=== PATIENT | male | born 1965 | race African-American/Black ===

== ENCOUNTER 2018-03-02 01:15 | Observation (INO) | payer OTHER, MEDICARE, MEDICAID ==
[2018-03-02] VITALS (10 sets, daily range): BP systolic 124–154; BP diastolic 59–83; PULSE 82–108; RESP 18–22; TEMP 98–99.6; O2SAT 93–97
[~2018-03-02] VITALS: Ht 170.2 cm; Wt 153.3 kg
[~2018-03-02 01:15] MED LIST: ACETAMINOPHEN 325 MG TAB PO PRN; ASPI-516 CHEW; ATOR80TA45 PO; BACL10TA PO; COPA20KI SQ; DOCU100C15 PO; GABA100C4 PO; IBUP1TAB7 PO; LEVO100T5 PO; TOPI1CAP16 PO
[2018-03-02] MEDS ORDERED: IOHEXOL 350 MG/ML 50 ML BTL (for Cath Lab) OTHER ONE (01:26)
[2018-03-02] MEDS ORDERED: BACLOFEN 10 MG TAB PO PRN (04:45)
[2018-03-02] MEDS: LEVOTHYROXINE SODIUM 100 MCG TAB PO SCH (05:24)
[2018-03-02] MEDS: SODIUM CHLOR 0.9% 1000 ML INJ 1,000 ML IV SCH ×3 (05:42→20:45)
--- NOTE | 2018-03-02 08:49 | HHI.HP ---
[facility] Service [place] [facility] Primary Care Physician [facility] Admission Diagnosis Chest pain Congestion Diagnoses: (1) Chest congestion (2) Chest pain Chief Complaint: Chest pain Cough Shortness of breath Travel History International Travel<30 Days: No Contact w/Intl Traveler <30 Da: No Traveled to Known Affected Are: No History of Present Illness This is a pleasant 52-year-old male patient with a known medical history of diabetes, hyperlipidemia, hypertension and hypothyroidism who presented to the ED with complaints of nonproductive cough, chest pain, shortness of breath and chills 1 day. Patient states that he does have a history of pneumonia and the symptoms feel the same as when he was diagnosed with this years back. Patient does admit to subjective fevers although he has not checked his temperature at home. Does admit to chills. Patient does admit to coughing which is associated with upper chest pain that radiates up his neck and is worse with coughing. Patient does admit to shortness of breath and need for use of increasing pillows at night. Denies any sore throat, earache, abdominal pain, nausea, vomiting, diarrhea dysuria. Patient does state he takes care of his 5 grandchildren and they all have been sick with upper respiratory infections. Patient denies ever having a cardiac stress test in the past. Does admit to taking his medications compliantly. Denies following with the rope cleaner. [facility]. Does admit to taking aspirin daily. Diabetes is reportedly lifestyle controlled. Denies any significant family medical history of cardiac disease. Denies any tobacco abuse. Review of Systems Constitutional: COMPLAINS OF: Fatigue, Fever, Chills Eyes: DENIES: Diplopia Respiratory: COMPLAINS OF: Cough, Sputum production, Shortness of breath Cardiovascular: COMPLAINS OF: Chest pain, DENIES: Palpitations, Lower Extremity Edema Gastrointestinal: DENIES: Abdominal pain, Black stools, Bloody stools, Constipation, Diarrhea, Nausea, Vomiting Musculoskeletal: DENIES: Joint pain Hematologic/lymphatic: DENIES: Bruising Neurologic: DENIES: Abnormal gait Psychiatric: DENIES: Anxiety Except as stated in HPI: all other systems reviewed are Neg Past Family Social History Past Medical History Right shoulder arthritis Hyperlipidemia Diet-controlled diabetes History of seizures History of sleep apnea History of hypothyroidism Past Surgical History Bilateral carpal tunnel repair Thyroidectomy Right ureteral stent placement Vasectomy Reported Medications Active Reported Topiramate ER (Topiramate) 25 Mg Cap 25 Mg PO HS Gabapentin 100 Mg Cap 100 Mg PO BID Levothyroxine (Levothyroxine Sodium) 100 Mcg Tab 100 Mcg PO DAILY Ibuprofen 800 Mg Tab 800 Mg PO Q8H PRN Copaxone Inj (Glatiramer Inj) 20 Mg/Ml Syr 20 Mg SQ EVERY OTHER DAY Docusate Sodium 100 Mg Cap 100 Mg PO DAILY PRN Baclofen 10 Mg Tab 10 Mg PO BID PRN Atorvastatin (Atorvastatin Calcium) 80 Mg Tab 80 Mg PO HS Aspirin 81 Mg Chew 81 Mg CHEW DAILY Allergies: Coded Allergies: Iodinated Contrast- Oral and IV Dye (Verified Allergy, Unknown, NAUSEA, ) Active Ordered Medications Current Medications Medications (Trade) Dose Ordered Sig/Abdon Route Start Time Stop Time Status Last Admin Sodium Chloride 1,000 ml @ 100 mls/hr Q10H IV 03/02/18 00:45 03/02/18 05:42 (Tylenol) 650 mg Q4H PRN PO 03/02/18 00:45 03/02/18 05:25 (Aspirin Chew) 81 mg DAILY CHEW 03/02/18 09:00 03/02/18 09:57 (Lipitor) 80 mg HS PO 03/02/18 21:00 (Lioresal) 10 mg BID PRN PO 03/02/18 04:45 (Neurontin) 100 mg BID PO 03/02/18 09:00 03/02/18 09:57 (Synthroid) 100 mcg DAILY@0600 PO 03/02/18 06:00 03/02/18 05:24 Patient Own Medication PT OWN MED:Topiramate ER 25 MG DOSE HS PO 03/02/18 21:00 Future Hold (Pneumovax-23 Inj) 25 mcg ONCE ONCE IM 03/03/18 10:00 03/03/18 10:01 (Toradol Inj) 15 mg ONCE ONCE IV PUSH 03/02/18 11:15 03/02/18 11:16 UNV Family History Denies any significant family medical history. Social History Denies any current or previous tobacco abuse. Denies any illicit drugs or alcohol use. Physical Exam Vital Signs Vital Signs Date Time Temp Pulse Resp B/P (MAP) Pulse Ox O2 Delivery O2 Flow Rate FiO2 03/02/18 08:28 104 03/02/18 07:50 99.6 108 20 129/78 (95) 94 03/02/18 06:25 20 03/02/18 04:00 99.5 106 20 146/83 (104) 96 03/02/18 01:50 99.2 95 22 142/82 (102) 96 03/02/18 01:30 90 Physical Exam GENERAL: Well-developed, well-nourished obese male patient in NAD. SKIN: Warm and dry. No rash. HEAD: Normocephalic. Atraumatic. EYES: Pupils equal and round. No scleral icterus. No injection or drainage. ENT: No nasal bleeding or discharge. Mucous membranes pink and moist. NECK: Supple. Trachea midline. CARDIOVASCULAR: Regular rate and rhythm. S1, S2 noted. No murmur appreciated. Mild chest pain to palpation in upper chest. RESPIRATORY: No accessory muscle use. Clear to auscultation. Breath sounds equal bilaterally. GASTROINTESTINAL: Abdomen soft, non-tender, nondistended. Normoactive bowel sounds x4. MUSCULOSKELETAL: No obvious deformities. Extremities without clubbing, cyanosis , or edema. NEUROLOGICAL: Awake and alert. No obvious cranial nerve deficits. Motor grossly within normal limits. 5/5 muscle strength in bilateral upper and lower extremities. Normal speech. PSYCHIATRIC: Appropriate mood and affect; insight and judgment normal. Laboratory Laboratory Tests Test 03/02/18 05:30 Troponin I LESS THAN 0.02 Septic Shock Reassessment Septic shock perfusion: reassessment completed Caprini VTE Risk Assessment Caprini VTE Risk Assessment: No/Low Risk (score <= 1) Caprini Risk Assessment Model Point Value = 1 Point Value = 2 Point Value = 3 Point Value = 5 Age 41-60 Minor surgery BMI > 25 kg/m2 Swollen legs Varicose veins or History of unexplained or recurrent spontaneous Oral contraceptives or hormone replacement Sepsis (< 1 month) Serious lung disease, including pneumonia (< 1 month) Abnormal pulmonary function Acute myocardial infarction Congestive heart failure (< 1 month) History of inflammatory bowel disease Medical patient at bed rest Age 61-74 Arthroscopic surgery Major open surgery (> 45 min) Laparoscopic surgery (> 45 min) Malignancy Confined to bed (> 72 hours) Immobilizing plaster cast Central venous access Age >= 75 History of VTE Family history of VTE Factor V Leiden Prothrombin [id number] Lupus anticoagulant Anticardiolipin antibodies Elevated serum homocysteine Heparin-induced thrombocytopenia Other congenital or acquired thrombophilia Stroke (< 1 month) Elective arthroplasty Hip, pelvis, or leg fracture Acute spinal cord injury (< 1 month) Prophylaxis Regimen Total Risk Factor Score Risk Level Prophylaxis Regimen 0-1 Low Early ambulation 2 Moderate Order ONE of the following: *Sequential Compression Device (SCD) *Heparin 5000 units SQ BID 3-4 Higher Order ONE of the following medications: *Heparin 5000 units SQ TID *Enoxaparin/Lovenox 40 mg SQ daily (WT < 150 kg, CrCl > 30 mL/min) *Enoxaparin/Lovenox 30 mg SQ daily (WT < 150 kg, CrCl > 10-29 mL/min) *Enoxaparin/Lovenox 30 mg SQ BID (WT < 150 kg, CrCl > 30 mL/min) AND/OR *Sequential Compression Device (SCD) 5 or more Highest Order ONE of the following medications: *Heparin 5000 units SQ TID (Preferred with Epidurals) *Enoxaparin/Lovenox 40 mg SQ daily (WT < 150 kg, CrCl > 30 mL/min) *Enoxaparin/Lovenox 30 mg SQ daily (WT < 150 kg, CrCl > 10-29 mL/min) *Enoxaparin/Lovenox 30 mg SQ BID (WT < 150 kg, CrCl > 30 mL/min) AND *Sequential Compression Device (SCD) Assessment and Plan Problem List: (1) Chest pain ICD Code: R07.9 - Chest pain, unspecified Plan: Patient has been admitted to the chest pain center for observation. Serial EKGs and serial troponins have been ordered for ruling out ACS purposes. Serial troponins flat. EKG reviewed showing no ST changes, controlled heart rate in normal sinus rhythm. CBC and CMP essentially unremarkable. BNP is less than 5. Patient denies any history of congestive heart failure. Chest x- ray reviewed no acute changes. Influenza negative. Patient symptoms have resolved. He states he feels much improved with IV antibiotics and fluids. Patient will undergo a cardiac nuclear stress test to further rule out any ischemia. Denies any history of heart disease or stress testing in the past. Further hospitalization will depend on nuclear imaging results. Patient is stable at this time and agreeable to plan. Continue aspirin. (2) Chest congestion ICD Code: R09.89 - Other specified symptoms and signs involving the circulatory and respiratory systems Plan: Likely bronchitis. Patient is congested with continued cough. Given one -time dose of Toradol for chest pain likely secondary to musculoskeletal reasons and coughing. Continue IV fluids for now. We will continue azithromycin. (3) Hyperlipidemia ICD Code: E78.5 - Hyperlipidemia Status: Acute Plan: Continue home statin. (4) Hypothyroidism ICD Code: E03.9 - Hypothyroidism, unspecified Plan: Continue home levothyroxine. DVT prophylaxis: SCDs. Ambulation Alisa Clarke March 02, 2018 08:49
[2018-03-02] MEDS: GABAPENTIN 100 MG CAP PO SCH ×2 (09:57→21:00)
[2018-03-02] MEDS: ASPIRIN 81 MG CHEW TAB CHEW SCH (09:57)
[2018-03-02] MEDS ORDERED: KETOROLAC TROMETHAMINE 30 MG/ML (IVP) VIAL IV PUSH ONE (11:15)
[2018-03-02] MEDS ORDERED: AZIT250T3 PO (11:22)
--- NOTE | 2018-03-02 11:22 | HHI.DCPOC ---
Discharge Care Plan Diagnosis: (1) Chest pain (2) Chest congestion (3) Bronchitis (4) Hypothyroidism (5) Hyperlipidemia Goals to Promote Your Health * To prevent worsening of your condition and complications * To maintain your health at the optimal level Directions to Meet Your Goals Take your medications as prescribed Follow your dietary instruction Follow activity as directed Keep your appointments as scheduled Take your immunizations and boosters as scheduled If your symptoms worsen call your PCP, if no PCP go to Urgent Care Center or Emergency Room Smoking is Dangerous to Your Health. Avoid second hand smoke Call the 24-hour hour crisis hotline for domestic abuse at Alisa Clarke March 02, 2018 11:22
[2018-03-02] MEDS: AZITHROMYCIN 250 MG TAB PO SCH (11:56)
[2018-03-02] MEDS ORDERED: REGADENOSON INJ 0.4 MG/5 ML SYR IV ONE (12:48)
--- NOTE | 2018-03-02 14:11 | RADRPT ---
EXAM DATE/TIME: 03/02/2018 12:44 [facility] COMPARISON: No previous studies available for comparison. INDICATIONS : Mid chest pain with shortness of breath for one day. Angina. DOSE: 35 mCi Tc99m Myoview at stress. 11 mCi Tc99m Myoview at rest. 0.4 mg Lexiscan STRESS SYMPTOMS: Dyspnea. EJECTION FRACTION: 68% MEDICAL HISTORY : Hypothyroidism. Asthma. SURGICAL HISTORY : Thyroidectomy. Ureteral stent. ENCOUNTER: Initial ACUITY: 1 day PAIN SCALE: 7/10 LOCATION: Midsternal chest TECHNIQUE: The patient underwent pharmacologic stress with infusion of prescribed dose. Continuous ECG tracing was monitored during stress. Gated SPECT imaging was performed after stress and conventional SPECT i maging was performed at rest. The examination was performed on a SPECT/CT scanner, both attenuation and non-corrected datasets were reviewed. FINDINGS: DISTRIBUTION: The maximum perfused segment at stress is in the lateral wall. PERFUSION STUDY: The pattern of perfusion at stress shows redistribution in the high anterior and low anteroseptal wal ls. Fixed diminished perfusion to the apex. GATED STUDY: There is intact wall motion and thickening without hypokinetic or dyskinetic segments. CONCLUSION: 1. Scintigraphic findings concerning for some ischemia in the LAD distribution. 2. Apical thinning versus old apical infarct. 3. Excellent wall motion throughout with estimated ejection fraction of 68% RISK CATEGORY: Intermediate (1-3% Annual Mortality Rate) Travis Mathews MD on March 02, 2018 at 14:03 Board Certified Radiologist. This report was verified electronically.
[2018-03-02] MEDS ORDERED: methylPREDNISolone SOD SUCC 125 MG/2 ML VIAL ONE (15:27)
[2018-03-02] MEDS ORDERED: diphenhydrAMINE HCL 50 MG/ML VIAL ONE (15:27)
[2018-03-02] MEDS ORDERED: HEPARIN-NS/PF FLUSH BAG 2,000 ML IV FLUSH ONE (15:27)
[2018-03-02] MEDS ORDERED: HEPARIN SODIUM - IV 10,000 UNITS/10 ML VIAL ONE (15:28)
[2018-03-02] MEDS ORDERED: FAMOTIDINE 20 MG/2 ML VIAL ONE (15:28)
[2018-03-02] MEDS ORDERED: NITROGLYCERIN INJ 5 ML ONE (15:41)
[2018-03-02] MEDS ORDERED: VERAPAMIL HCL 5 MG/2 ML VIAL ONE (15:41)
[2018-03-02] MEDS ORDERED: MIDAZOLAM HCL 2 MG/2 ML VIAL ONE (15:41)
--- NOTE | 2018-03-02 16:35 | TR ---
Date Performed: 03/02/2018 Time Performed: 13:11:35 DOCTOR: Umesh Mijares DRUG LIST: CLINICAL HISTORY: CHEST PAIN REASON FOR TEST: Chest pain REASON FOR ENDING: OBSERVATION: CONCLUSION: COMMENTS: Lexiscan stress test was performed under standard four minute protocol. Radionuclide was injected one minute prior to ending the test. No electrocardiographic abormalities were present t o suggest ischemia. Nuclear imaging and interpretation are pending.
--- NOTE | 2018-03-02 17:04 | CATHPROC ---
[facility] Report Study Information Study Number Admission Scheduled Start Study Start [id number] Mar 02 2018 1:25AM 03/02/2018 Mar 02 2018 3:31PM [facility] Cardiac Catheterization Admit Source Facility Department Emergency department [facility] - Sports Instructor Physician and Clinical Staff Initial Victor Manuel Hernandez Statistical Geneticist Ashok Damico RN Statistical Geneticist Janett Escobar RN Recorder Lily Paulson,RECORD SEARCHER TECH2 Scrub Cristina Sanon,RT(R) Procedures Performed Procedure Location (Site) Vessel Name Coronary Angiograms LCA Left Coronary Coronary Angiograms RCA Right Coronary Equipment Time Deputy Sheriff Bailiff Description Size Mfg Part Number Used/Scraped TRANSDUCER, TRUWAVE [id number] 15:33 GUADARRAMA ARRIETA * Used W/STOCKCOCK *[id number] *[id number] [id number] *[id number] 15:33 [employer]Bridge PACK, CCL CUSTOM * Used *[id number] 15:33 [employer] SUPPORT, ARTERIAL ADULT [id number] *[id number] Used BAND, RADIAL COMPRESSION TR [id number] 16:42 [employer] MEDICAL 29CM Used LARGE 29 *[id number] 15:33 [employer] WIRE, EXCHANGE 260CM 3MMJ 260CM Used *[id number] 15:33 NAMIC MANIFOLD, 4 PORT * Used *[id number] 15:33 NYCOMED OMNIPAQUE, 350 MG, 150ML 150ML [id number] Used [id number] 15:33 FERNA[employer] MEDICAL BLANKET,WARM AIR CCL * Used *[id number] SHEATH, FR6 TRANSRADIAL RM*[id number] 15:33 [employer] FR 6 Used SLENDER 10CM *[id number] History: Current Medications Medication Dosage/Unit Route Frequency Last Date/Time Taken ASA Neurontin Synthroid Statins (any) History: Allergies Allergy Reaction Iodinated Contrast- Oral and IV NAUSEA Dye History: Risk Factors Family History of Hypertension Dyslipidemia Previous OH Previous Heart Failure Premature CAD Yes Yes No No No Prior Valve Prior PCI Prior CABG Surgery No No No Cerebrovascular Peripheral Artery Chronic Lung On Dialysis Diabetes Diabetes Therapy Disease Disease Disease No No No No Yes Diet History: Symptoms/Diagnosis Selection Items Chest pain SOB History: Stress Tests Stress or Imaging Studies Performed Yes Standard Exercise Stress Test No Stress Echo No Stress Test SPECT Stress Test SPECT Result Stress Test SPECT Ischemia Risk/Extent Yes Positive Intermediate Stress Test CMR No Cardiac CTA Coronary Calcium Score No No History: Other Disease Selection Items HTN History: Other Current Smoker No Labs Hgb (g/dl) Hct (%) WBC (l/cumm) Platelets (thousands) 11.60-17.00 35.00-51.00 4.00-11.00 150.00-450.00 13.1 40.3 6.7 203 BUN (mg/dl) Creatinine (mg/dl) BUN:Creatinine (1:x) 7.00-18.00 0.50-1.30 10.00-20.00 13 1.2 10.8 Na (meq/l) K (meq/l) Cl (meq/l) CO2 (mmol/L) Ca (mg/dl) 136.00-145.00 3.50-5.10 98.00-107.00 21.00-32.00 8.50-10.10 145 4.1 113 25 8.3 PT (sec) INR (PTT:PT) 9.80-11.60 0.90-1.10 10.4 1 Troponin I (ng/ml) CPK (u/l) CPK-MB (ng/ML) 0.02-0.05 26.00-308.00 0.50-3.60 0.02 409 2.3 Medication Medication Total Dose (Bolus/Oral) Medication Total Dosage/Unit 1% XYLOCAINE 5 mL BENADRYL 25 mg FENTANYL 25 mcg PEPCID 20 mg RADIAL COCKTAIL 5 mL (Bolus) SOLU-MEDROL 125 mg VERSED 0.5 mg Medications (Bolus/Oral) Medication Time Given Dosage/Unit Administered By Reason BENADRYL 03/02/2018 4:19:40 PM 25 mg Margaux, Ashok 25 mg BENADRYL given in lab by Ashok Damico RN in Right Hand via Peripheral IV. Ordered by Victor Manuel Em SOLU-MEDROL 03/02/2018 4:20:02 PM 125 mg Margaux, Ashok 125 mg SOLU-MEDROL given in lab by Ashok Damico RN in Right Hand via Peripheral IV. Ordered by Victor Manuel Moe PEPCID 03/02/2018 4:22:13 PM 20 mg Margaux, Ashok 20 mg PEPCID given in lab by Ashok Damico RN in Right Hand via Peripheral IV. Ordered by Mala Em VERSED 03/02/2018 4:24:11 PM 0.5 mg Ashok Damico 0.5 mg VERSED given in lab by Ashok Damico RN in Right Hand via Peripheral IV. Ordered by Victor Manuel Em FENTANYL 03/02/2018 4:25:30 PM 25 mcg Ashok Damico 25 mcg FENTANYL given in lab by Ashok Damico RN in Right Hand via Peripheral IV. Ordered by Victor Manuel Em 1% XYLOCAINE 03/02/2018 4:27:30 PM 5 mL Victor Manuel Em 5 mL 1% XYLOCAINE given in lab by Victor Manuel Em in Right Radial via Subcutaneous. Ordered by Victor Manuel Garcia RADIAL COCKTAIL 03/02/2018 4:29:57 PM 5 mL (Bolus) Victor Manuel Em 5 mL (Bolus) RADIAL COCKTAIL given in lab by Victor Manuel Em in Right Radial via Radial. Using [S olution Name]. Ordered by Victor Manuel Em Reason: Ntg 200mcg Verapamil 2.5mg Heparin 5000U. Medication (Drip) Medication Time Given Dosage/Unit Concentration/Unit Diluent (ml) Solution IV Solutions 03/02/2018 4:06:20 PM 0 mL (IV) 500 NaCl .9 Patient arrived on IV Solutions in Right Hand via Peripheral IV. Pump/Drip Flow = 20 ml/hr using NaCl .9. Initial Case Assessment Cardiovascular HR Rhythm NIBP Chest Pain 83 nsr 145/88 0 Edema Present Skin color Skin None Normal Warm Dry Circulatory - Right Pulses Dorsalis Pedis Femoral Radial 2 2 1 Scale (0,1,2,3,4,d) Circulatory - Left Pulses Dorsalis Pedis Femoral Radial 2 2 Scale (0,1,2,3,4,d) Neurological State Oriented to time-place- Alert Moves all extremities person Respiration - General Respiration Rate SpO2 (%) (B/min) 15 96 Final Case Assessment Cardiovascular HR Rhythm NIBP Chest Pain 80 sr 135/80 0 Circulatory - Right Pulses Dorsalis Pedis Femoral Radial 2 2 1 Scale (0,1,2,3,4,d) Circulatory - Left Pulses Dorsalis Pedis Femoral Radial 2 2 Scale (0,1,2,3,4,d) Neurological State Oriented to time-place- Alert Moves all extremities person Respiration - General Respiration Rate SpO2 (%) (B/min) 16 98 Chronological Log Time Study Chronological Log 16:06:09 Patient arrived via Bed. 16:06:11 Patient Name, D.O.B, / Armband Verified By R.N. 16:06:11 Consent signed by the physician and the patient and verified by the Sports Instructor staff. 16:06:12 Pre-op and post- op instructions given; patient acknowledges understanding of instructions. 16:06:13 Verbal Stimulation=2 Physical Stimulation=2 Airway=2 Respiration=2 TOTAL=8. (0=absent, 1=li mited, 2=present) 16:06:13 Presedation assessment performed by Sports Instructor RN. 16:06:14 Allens test performed on the right radial and ulnar artery. POSITIVE. 16:06:15 Immediate Presedation assesment performed by physician. 16:06:16 Patient has been NPO for More than 6Hrs. 16:06:16 Skin Breakdown-no 16:06:17 Patient Warmer Placed on the Table. 16:06:18 Jarred Prominences Protected 16:06:19 A # 20 IV was noted in the Hand (right). Grade = 0 16:06:20 Patient arrived on IV Solutions in Right Hand via Peripheral IV. Pump/Drip Flow = 20 ml/hr using NaCl .9. 16:06:21 History and physical on the chart or being dictated. 16:07:00 MD arrived. Assessment: Initial Case, HR=83 BPM, Rhythm=nsr, KOGR=202/88 mmhg, Chest Pain=0, Edema=None, Co francisco javier=Normal, Skin = Warm, Dry Right Pulses: Carlos Ped=2, Femoral=2, Radial=1 16:09:14 Left Pulses: Carlos Ped=2, Femoral=2 Neurological: State=Alert, Ox3, CONSTANTINO Respiration: Resp=15 B/min, SpO2=96 % Vitals capture started with the following parameters, Patient=Adult, Interval=5 min, Initial Pr oixtto=668 mmHg, 16:12:57 Deflation Rate=5 mmHg, Cuff placed on Left Arm 16:13:43 HR=85 bpm, RVAR=807/88 mmhg, SpO2=95.0 %, Resp=15 B/min, Pain=0, Janel=10, Murdock=2 16:13:54 Reference ECG taken 16:15:28 Contrast Scanned 16:15:29 Immediate Presedation assesment performed by physician. 16:18:37 Right Radial and groin(s) prepped with 2% chlorhexidine, and draped after a 3 min. waiting time. 16:18:38 HR=88 bpm, AYRC=733/93 mmhg, SpO2=94.0 %, Resp=19 B/min, Pain=0, Janel=10, Murdock=2 16:19:40 25 mg BENADRYL given in lab by Ashok Damico RN in Right Hand via Peripheral IV. Ordered by Victor Manuel Em 125 mg SOLU-MEDROL given in lab by Ashok Damico RN in Right Hand via Peripheral IV. Ordered by Victor Manuel Em 16:20:02 G. 16:22:13 20 mg PEPCID given in lab by Ashok Damico RN in Right Hand via Peripheral IV. Ordered by Victor Manuel Gutierrez 16:23:11 Pressure channel 1 zeroed. 16:23:39 HR=88 bpm, JOSL=102/103 mmhg, SpO2=95 %, Resp=16 B/min 16:24:11 0.5 mg VERSED given in lab by Ashok Daimco RN in Right Hand via Peripheral IV. Ordered by Victor Manuel Em 16:25:30 25 mcg FENTANYL given in lab by Ashok Damico RN in Right Hand via Peripheral IV. Ordered b y Victor Manuel Em Time Out. Correct patient, correct procedure, correct physician, power injector not loaded with contrast with surgical 16:26:40 team present. Time Out Concurred by MD and individual staff in procedure. 16:27:28 Case Start 5 mL 1% XYLOCAINE given in lab by Victor Manuel Em in Right Radial via Subcutaneous. Ordered by Manav ::30 Victor Manuel Olivier 16:28:38 HR=89 bpm, UVQZ=309/100 mmhg, SpO2=96.0 %, Resp=16 B/min 16:29:14 Access site was Radial Artery. Right A SHEATH, FR6 TRANSRADIAL SLENDER 10CM FR 6 was advanced into the Radial (right) using the Perc utaneous 16:29:30 technique. 5 mL (Bolus) RADIAL COCKTAIL given in lab by Victor Manuel Em in Right Radial via Radial. Us ing [Solution Name]. 16:29:57 Ordered by Victor Manuel Em. Reason: Ntg 200mcg Verapamil 2.5mg Heparin 5000U. A JR 4.0 INFINITI CATHETER FR 5 was advanced over a wire. OMNIPAQUE, 350 MG, 150ML 150ML was us ed for 16:31:16 injections. Recorded Pressure: LV, HR=93, Condition=Condition 1 16:33:36 (Left Ventricle) LV 121/3/8 16:33:37 HR=93 bpm, NNNE=789/85 mmhg, SpO2=95.0 %, Resp=19 B/min Recorded Pressure: LV, Ao, HR=95, Condition=Condition 1 16:33:51 (Left Ventricle) LV 119/6/7, (Aorta) Ao 116/83/97 16:35:20 The RCA was injected and visualized at various angles. OMNIPAQUE, 350 MG, 150ML 150ML used . After removing the current catheter a JL 3.5 INFINITI CATHETER FR 5 was advanced over a WIRE, E XCHANGE 260CM 16:35:45 3MMJ 260CM. 16:38:38 HR=85 bpm, VBQH=715/82 mmhg, SpO2=91.0 %, Resp=17 B/min 16:41:06 The LCA was injected and visualized at various angles. OMNIPAQUE, 350 MG, 150ML 150ML used . 16:42:42 Catheter was removed 16:43:37 HR=84 bpm, CWUV=545/84 mmhg, SpO2=88.0 %, Resp=17 B/min 16:44:11 Case End Radial Compression Device Used. 11 mLs of air placed in BAND, RADIAL COMPRESSION TR LARGE 29 29 CM. Affected 16:45:31 hand 98 % O2 saturation. 16:48:40 HR=81 bpm, ZXHW=373/80 mmhg, SpO2=98 %, Resp=16 B/min Assessment: Final Case, HR=80 BPM, Rhythm=sr, GYLD=055/80 mmhg, Chest Pain=0 Right Pulses: Carlos Ped=2, Femoral=2, Radial=1 16:50:12 Left Pulses: Carlos Ped=2, Femoral=2 Neurological: State=Alert, Ox3, CONSTANTINO Respiration: Resp=16 B/min, SpO2=98 % 16:54:06 No case complications noted. 16:54:08 Cine recording checked. 16:54:09 Bedside Report will be given. 17:02:52 Patient moved to stretcher 17:03:56 Patient transported to DOCU. End Study - Contrast Media Used In Study Contrast Total Opened (mL) Total Used (mL) Total Wasted (mL) Omnipaque 40 40 0 End Study - Maximum Contrast Load Max Contrast Load (mL) 662.9 End Study - Radiation Exposure Fluoro Time (minutes) 5.3 End Study - Sheaths Sheaths Pulled By Sheath Hold Time (min) Cristina Sanon End Study - Patient Disposition Complications Transferred To Interventional Outcome No Telemetry Bed No attempt made
[2018-03-02] MEDS ORDERED: MISC INFORMATION XX ONE (17:15)
--- NOTE | 2018-03-02 17:37 | MB ---
cc: Victor Manuel Em Vincent G DO DATE: 03/02/2018 REASON FOR CONSULTATION: Chest pain, abnormal stress test. HISTORY OF PRESENT ILLNESS: Abdullahi Horn is a pleasant 52-year-old male who presented to [facility] emergency room in [place] due to chest pain, shortness of breath and nonproductive cough for 1 day. Apparently, he was admitted to the chest pain center for observation and he underwent stress testing which showed anterior ischemia so he was recommended consideration of cardiac catheterization. In seeing him, he is currently without chest pain or shortness of breath, although he does feel somewhat congested with a continual cough. PAST MEDICAL HISTORY: 1. Arthritis. 2. Hyperlipidemia. 3. Diet-controlled diabetes. 4. History of seizures. 5. History of sleep apnea. 6. History of hypothyroidism. PAST SURGICAL HISTORY: 1. Bilateral carpal tunnel. 2. Thyroidectomy. 3. Right ureteral stent placement. 4. Vasectomy. ALLERGIES: IODINE (CAUSES HIM TO FEEL NAUSEATED) MEDICATIONS: 1. Baclofen 10 mg b.i.d. as needed for muscle spasm. 2. Lipitor 80 mg every night. 3. Aspirin 81 mg daily. 4. Ibuprofen 800 mg every 8 hours as needed for pain. 5. Gabapentin 100 mg b.i.d. 6. Topiramate ER 25 mg every night. 7. Synthroid 100 mcg daily. 10. Copaxone 20 mg subcu every other day. FAMILY HISTORY: Denies premature coronary artery disease or sudden cardiac within the family. SOCIAL HISTORY: Denies tobacco, alcohol or drug abuse. REVIEW OF SYSTEMS: Fourteen systems were reviewed including osteopathic. Pertinent positives and negatives as above, otherwise negative. PHYSICAL EXAMINATION: VITAL SIGNS: Temperature 98.0, heart rate 88, blood pressure 135/78, respirations 20, pulse oximetry 94% on room air. GENERAL: The patient appears well in no acute distress, alert, awake and oriented x3. HEENT: Extraocular muscles intact. Mucous membranes moist. NECK: Supple. No JVD at 45 degrees. No carotid bruits heard bilaterally. Carotid upstroke is brisk in nature. HEART: Regular rate and rhythm. Positive first and second heart sounds with no noted murmurs, gallops or rubs. LUNGS: Decreased breath sounds bilaterally, but no overt wheezes, rales or rhonchi. ABDOMEN: Soft, nontender, nondistended. No organomegaly noted. EXTREMITIES: Show no clubbing, cyanosis or edema. Femoral and distal pulses are intact bilaterally. NEUROLOGIC: No focal deficits. SKIN: Warm, dry and intact. OSTEOPATHIC: No kyphoscoliosis, lordosis or paraspinal tender points. LABORATORY DATA: Hemoglobin 13.1, hematocrit 40.3, platelets 203. Potassium 4.1, BUN 13, creatinine 1.2. Troponin negative x3. CARDIOLOGY STUDIES: Echocardiogram (03/01/2018 at 1849): Sinus rhythm, nonspecific ST-T wave changes. ASSESSMENT: 1. Atypical chest pain. 2. Abnormal stress test showing anterior ischemia. 3. Chest congestion, most likely consistent with upper respiratory infection. 4. Hyperlipidemia. 5. Hypothyroidism. 6. Obesity with a body mass index of 55. RECOMMENDATIONS: 1. Mr. Horn underwent stress testing showing anterior ischemia and considered an intermediate risk stress test. Because of this, he will be recommended cardiac catheterization. 2. Risks, benefits, and alternatives were explained to him and he consented as such. 3. We will plan on checking a 2-Dimensional echocardiogram to look at his overall left ventricular function, cardiac structure and possible valvulopathies. 4. Overall, I believe that his true underlying illness is an upper respiratory infection and this will be treated by the primary medical team. 5. Further recommendations will be made based on coronary visualization. Thank you for allowing me to see Abdullahi Horn. If there are any questions, please do not hesitate to call. DO YASMIN Kim/ , 05:07 PM , 05:36 PM
--- NOTE | 2018-03-02 17:45 | MA ---
cc: Victor Manuel Em DO DATE: 03/02/2018 DATE OF PROCEDURE: 03/02/2018 PROCEDURE PERFORMED: Left heart catheterization, coronary angiogram, moderate sedation 20 minutes. PREPROCEDURE DIAGNOSES: Chest pain, abnormal stress test. POSTPROCEDURE DIAGNOSIS: Mild coronary artery disease. MEDICATIONS: Solu-Medrol 125 mg, Benadryl 25 mg, Pepcid 20 mg, Versed 0.5 mg, fentanyl 25 mcg, heparin 5000 units, verapamil 2.5 mg, nitro 200 mcg. CONTRAST USED: 40 mL. FLUOROSCOPY: 5.3 minutes. MODERATE SEDATION: 20 minutes. FRAILTY SCORE: 3. ESTIMATED BLOOD LOSS: 10 mL. PROCEDURAL SUMMARY: Abdullahi Horn is a pleasant 52-year-old male who presented to [facility] emergency room due to chest pain. He was transferred to [facility] and underwent stress testing, which showed anterior ischemia. Because of this, he was recommended cardiac catheterization. Risks, benefits and alternatives were explained to him and he consented to such. He was brought to the lab and prepped in the usual sterile fashion. The right radial artery was accessed using a modified Seldinger technique and placement of a 5/6 Monegasque slender sheath. This was easily aspirated and flushed. A JR4 was advanced over a J-wire to the ascending aorta and across the aortic valve for measurement of left ventricular pressure. This was pulled back across the aortic valve showing no significant gradient of aortic stenosis. JR4 was then used for selective angiography of the right coronary artery system. This was exchanged out for a JL3.5, which was used for selective angiography of the left coronary artery system. JL3.5 was removed over a J-wire. A radial band was placed over the arteriotomy site for hemostasis. 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 FINDINGS: LEFT MAIN: Large vessel with adequate reflux. It bifurcates into an LAD and circumflex. LEFT CIRCUMFLEX: Moderate size vessel with 10% disease throughout. It gives off 1 major obtuse marginal with no significant disease. LEFT ANTERIOR DESCENDING: Large vessel with mild luminal irregularities throughout the mid to distal portion. It gives off 2 major diagonals with no significant disease. RCA: Moderate to large size vessel with mild luminal irregularities. Distally, it provides a PDA as well as 2 posterolateral branches with no significant disease. LVEDP: 7. IMPRESSIONS: 1. Atypical chest pain. 2. Abnormal stress test. 3. Mild coronary artery disease by cardiac catheterization as above. 4. Probable upper respiratory infection. RECOMMENDATIONS: 1. Mr. Horn appears to have mild coronary artery disease and he will be recommended continued medical therapy. 2. He will be watched overnight and if stable tomorrow, plan for discharge is home. 3. We will check a 2-D echo to look at his overall left ventricular function, cardiac structure and possible valvulopathies. 4. Overall, I believe that he has an upper respiratory infection and this will be treated by the primary medical team. Thank you for allowing me to see Abdullahi Horn. If there are any questions, please do not hesitate to call. DO YASMIN Kim/KD , 05:12 PM , 05:44 PM
[2018-03-02] MEDS ORDERED: TOPIRAMATE 25 MG PO SCH (21:00)
[2018-03-02] MEDS ORDERED: ATORVASTATIN 40 MG TAB PO SCH (21:00)
[2018-03-03] VITALS (7 sets, daily range): BP systolic 123–144; BP diastolic 68–81; PULSE 80–94; RESP 16–18; TEMP 98.3–98.7; O2SAT 95
[2018-03-03] MEDS: LEVOTHYROXINE SODIUM 100 MCG TAB PO SCH (05:39)
[2018-03-03] MEDS: SODIUM CHLOR 0.9% 1000 ML INJ 1,000 ML IV SCH (05:41)
[2018-03-03 06:55] LABS: BICARBONATE 23.3 MEQ/L (21.0-32.0); CREATININE 1.27 MG/DL (0.60-1.30)
[2018-03-03 07:11] LABS: AUTOMATED NEUTROPHIL # 10.6 TH/MM3 (1.8-7.7); BASOPHIL % 0.1 % (0.0-2.0); HEMATOCRIT 44.5 % (39.0-51.0); HEMOGLOBIN 14.5 GM/DL (13.0-17.0); LYMPH % 7.7 % (9.0-44.0); LYMPHOCYTE # 0.9 TH/MM3 (1.0-4.8); MEAN CELL VOLUME 81.2 FL (80.0-100.0); MEAN CORPUSCULAR HEMOGLOBIN 26.4 PG (27.0-34.0); MEAN CORPUSCULAR HGB CONC 32.5 % (32.0-36.0); MEAN PLATELET VOLUME 10.3 FL (7.0-11.0); MONO % 3.2 % (0.0-8.0); MONOCYTE # 0.4 TH/MM3 (0-0.9); PLATELET COUNT 232 TH/MM3 (150-450); RED BLOOD COUNT 5.48 MIL/MM3 (4.50-5.90); RED CELL DISTRIBUTION WIDTH 16.7 % (11.6-17.2); WHITE BLOOD COUNT 11.9 TH/MM3 (4.0-11.0)
[2018-03-03] MEDS: AZITHROMYCIN 250 MG TAB PO SCH (08:11)
[2018-03-03] MEDS: ASPIRIN 81 MG CHEW TAB CHEW SCH (08:11)
[2018-03-03] MEDS: GABAPENTIN 100 MG CAP PO SCH (08:11)
[2018-03-03] MEDS ORDERED: AZIT500T2 PO (09:09)
[2018-03-03] MEDS ORDERED: AZITHROMYCIN 250 MG TAB PO ONE (09:15)
--- NOTE | 2018-03-03 09:17 | HHI.PR ---
Subjective Remarks Pt feeling ok. still has some congestion but no sob, fevers or chills. denies any CP, n/v Pt states his will be getting off work around 3pm today Objective Vitals Vital Signs Date Time Temp Pulse Resp B/P (MAP) Pulse Ox O2 Delivery O2 Flow Rate FiO2 03/03/18 08:00 98.3 81 16 136/81 (99) 95 03/03/18 07:00 93 03/03/18 04:00 98.7 88 18 135/68 (90) 95 03/03/18 00:00 98.7 89 18 144/71 (95) 95 03/03/18 00:00 89 03/02/18 20:00 98.7 94 18 139/59 (85) 94 03/02/18 20:00 98.7 94 18 139/59 (85) 94 03/02/18 20:00 94 03/02/18 18:30 98.6 82 18 154/72 (99) 97 03/02/18 15:45 98.0 88 20 135/78 (97) 94 03/02/18 15:23 96 03/02/18 11:30 98.8 92 20 124/66 (85) 93 I/O 03/02/18 03/02/18 03/02/18 03/03/18 03/03/18 03/03/18 07:00 15:00 23:00 07:00 15:00 23:00 Intake Total 0 ml 240 ml 600 ml Output Total 600 ml 400 ml 800 ml Balance -600 ml -160 ml -200 ml Intake Oral 0 ml 240 ml 600 ml Output Urine Total 600 ml 400 ml 800 ml # Voids 2 # Bowel Movements 0 1 0 Result Diagram: 03/03/18 0531 03/03/18 0531 Imaging Last Impressions Myocardial Perfusion Scan Nuc Med 03/02/18 0000 Signed Impressions: Service Date/Time: Friday, March 02, 2018 12:44 - CONCLUSION: 1. Scintigraphic findings concerning for some ischemia in the LAD distribution. 2. Apical thinning versus old apical infarct. 3. Excellent wall motion throughout with estimated ejection fraction of 68%% RISK CATEGORY: Intermediate (1-3%% Annual Mortality Rate) Travis Mathews MD Objective Remarks GENERAL: Well-developed, well-nourished obese male patient wearing his CPAP machine CARDIOVASCULAR: Regular rate and rhythm. No murmur appreciated. RESPIRATORY: No accessory muscle use. Clear to auscultation. Breath sounds equal bilaterally. GASTROINTESTINAL: Abdomen soft, non-tender, nondistended. MUSCULOSKELETAL: moves extremities A/P Problem List: (1) Chest pain ICD Code: R07.9 - Chest pain, unspecified (2) Chest congestion ICD Code: R09.89 - Other specified symptoms and signs involving the circulatory and respiratory systems (3) Hyperlipidemia ICD Code: E78.5 - Hyperlipidemia Status: Acute (4) Hypothyroidism ICD Code: E03.9 - Hypothyroidism, unspecified Assessment and Plan (1) Chest pain Patient was admitted to the chest pain center for observation. Serial EKGs and serial troponins have been ordered for ruling out ACS purposes. Serial troponins flat. EKG reviewed showing no ST changes, controlled heart rate in normal sinus rhythm. CBC and CMP essentially unremarkable. BNP is less than 5. Patient denied any history of congestive heart failure. Chest x-ray reviewed no acute changes. Influenza negative. Patient symptoms have resolved. Pt underwent cardiac nuclear stress test which put him at intermediate risk. Pt was transferred to [facility] and underwent a cardiac cath POD 1 which showed mild CAD. ECHO was ordered and pending. 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 Continue medical management (2) Chest congestion Likely bronchitis. Patient is congested with cough. currently on azithromycin and responding. (3) Hyperlipidemia Continue home statin. (4) Hypothyroidism Continue home levothyroxine. DVT prophylaxis: SCDs. Ambulation Discharge Planning Anticipate d/c home later today pending ECHO results and clearance from [employer] heart healthy diet script in chart activity adlib condition stable. Karolyn Fofana MD March 03, 2018 09:17
[2018-03-03] MEDS ORDERED: PNEUMOCOCCAL POLYVALENT INJ 25 MCG/0.5 ML SYR IM ONE (10:00)
--- NOTE | 2018-03-03 12:07 | PD.CARD.PN ---
Subjective Subjective Remarks No events overnight Feels well Breathing better No chest pain Objective Medications Current Medications Medications (Trade) Dose Ordered Sig/Abdon Route Start Time Stop Time Status Last Admin (Tylenol) 650 mg Q4H PRN PO 03/02/18 00:45 03/02/18 05:25 (Aspirin Chew) 81 mg DAILY CHEW 03/02/18 09:00 03/03/18 08:11 (Lipitor) 80 mg HS PO 03/02/18 21:00 03/02/18 21:01 (Lioresal) 10 mg BID PRN PO 03/02/18 04:45 (Neurontin) 100 mg BID PO 03/02/18 09:00 03/03/18 08:11 (Synthroid) 100 mcg DAILY@0600 PO 03/02/18 06:00 03/03/18 05:39 Patient Own Medication PT OWN MED:Topiramate ER 25 MG DOSE HS PO 03/02/18 21:00 Future Hold (Zithromax) 500 mg DAILY PO 03/04/18 09:00 Vital Signs / I&O Vital Signs Date Time Temp Pulse Resp B/P (MAP) Pulse Ox O2 Delivery O2 Flow Rate FiO2 03/03/18 08:00 98.3 81 16 136/81 (99) 95 03/03/18 07:00 93 03/03/18 04:00 98.7 88 18 135/68 (90) 95 03/03/18 00:00 98.7 89 18 144/71 (95) 95 03/03/18 00:00 89 03/02/18 20:00 98.7 94 18 139/59 (85) 94 03/02/18 20:00 98.7 94 18 139/59 (85) 94 03/02/18 20:00 94 03/02/18 18:30 98.6 82 18 154/72 (99) 97 03/02/18 15:45 98.0 88 20 135/78 (97) 94 03/02/18 15:23 96 I/O 03/02/18 03/02/18 03/02/18 03/03/18 03/03/18 03/03/18 07:00 15:00 23:00 07:00 15:00 23:00 Intake Total 0 ml 240 ml 600 ml Output Total 600 ml 400 ml 800 ml Balance -600 ml -160 ml -200 ml Intake Oral 0 ml 240 ml 600 ml Output Urine Total 600 ml 400 ml 800 ml # Voids 2 # Bowel Movements 0 1 0 Physical Exam GENERAL: NAD, AAOx3 SKIN: Warm and dry. HEAD: Atraumatic. Normocephalic. EYES: Pupils equal and round. No scleral icterus. No injection or drainage. ENT: No nasal bleeding or discharge. Mucous membranes pink and moist. NECK: Trachea midline. No JVD. CARDIOVASCULAR: Regular rate and rhythm. RESPIRATORY: No accessory muscle use. Clear to auscultation. Breath sounds equal bilaterally. GASTROINTESTINAL: Abdomen soft, non-tender, nondistended. Hepatic and splenic margins not palpable. MUSCULOSKELETAL: Extremities without clubbing, cyanosis, or edema. No obvious deformities. Right radial no hematoma neurovascularly intact distally NEUROLOGICAL: Awake and alert. No obvious cranial nerve deficits. Motor grossly within normal limits. Five out of 5 muscle strength in the arms and legs. Normal speech. PSYCHIATRIC: Appropriate mood and affect; insight and judgment normal. Laboratory Laboratory Tests Test 03/03/18 05:31 White Blood Count 11.9 TH/MM3 Red Blood Count 5.48 MIL/MM3 Hemoglobin 14.5 GM/DL Hematocrit 44.5 % Mean Corpuscular Volume 81.2 FL Mean Corpuscular Hemoglobin 26.4 PG Mean Corpuscular Hemoglobin Concent 32.5 % Red Cell Distribution Width 16.7 % Platelet Count 232 TH/MM3 Mean Platelet Volume 10.3 FL Neutrophils (%) (Auto) 89.0 % Lymphocytes (%) (Auto) 7.7 % Monocytes (%) (Auto) 3.2 % Eosinophils (%) (Auto) 0.0 % Basophils (%) (Auto) 0.1 % Neutrophils # (Auto) 10.6 TH/MM3 Lymphocytes # (Auto) 0.9 TH/MM3 Monocytes # (Auto) 0.4 TH/MM3 Eosinophils # (Auto) 0.0 TH/MM3 Basophils # (Auto) 0.0 TH/MM3 CBC Comment DIFF FINAL Differential Comment Blood Urea Nitrogen 14 MG/DL Creatinine 1.27 MG/DL Random Glucose 157 MG/DL Calcium Level 9.0 MG/DL Sodium Level 141 MEQ/L Potassium Level 4.2 MEQ/L Chloride Level 108 MEQ/L Carbon Dioxide Level 23.3 MEQ/L Anion Gap 10 MEQ/L Estimat Glomerular Filtration Rate 72 ML/MIN Assessment and Plan Problem List: (1) Abnormal stress test ICD Codes: R94.39 - Abnormal result of other cardiovascular function study (2) Chest pain ICD Codes: R07.9 - Chest pain, unspecified (3) Chest congestion ICD Codes: R09.89 - Other specified symptoms and signs involving the circulatory and respiratory systems (4) Bronchitis ICD Codes: J40 - Bronchitis, not specified as acute or chronic (5) Hyperlipidemia ICD Codes: E78.5 - Hyperlipidemia Status: Acute Assessment and Plan 1) Mild CAD Con't medical management 2) 2D echo pending 3) URI Per primary team 4) If echo with no problems, cardiovascularly stable for discharge Victor Manuel Em DO March 03, 2018 12:07
--- NOTE | 2018-03-03 14:05 | ECHRPT ---
Indication: Chest pain, unspecified CONCLUSIONS Normal left ventricular size and wall thickness. The left ventricular systolic function is normal wi th an estimated ejection fraction in the range of 60-65%. No definite wall motion abnormalities. The aortic valve is not well visualized. No defnite valvular abnormalities. BP: 136 / 81 HR: 81 Rhythm: Sinus MEASUREMENTS (Male / Female) Normal Values Technical Quality:Good 2D ECHO LV Diastolic Diameter PLAX 4.3 cm 4.2 - 5.9 / 3.9 - 5.3 cm LV Systolic Diameter PLAX 3.1 cm IVS Diastolic Thickness 1.1 cm 0.6 - 1.0 / 0.6 - 0.9 cm LVPW Diastolic Thickness 1.1 cm 0.6 - 1.0 / 0.6 - 0.9 cm LV Relative Wall Thickness 0.5 LVOT Diameter 2.1 cm M-MODE Aortic Root Diameter MM 3.7 cm LA Systolic Diameter MM 3.8 cm LA Ao Ratio MM 1.0 AV Cusp Separation MM 2.0 cm DOPPLER AV Peak Velocity 137.0 cm/s AV Peak Gradient 7.5 mmHg LVOT Peak Velocity 97.7 cm/s LVOT Peak Gradient 3.8 mmHg AV Area Cont Eq pk 2.5 cm Mitral E Point Velocity 76.0 cm/s Mitral A Point Velocity 70.1 cm/s Mitral E to A Ratio 1.1 LV E' Lateral Velocity 6.8 cm/s Mitral E to LV E' Lateral Ratio 11.1 LV E' Septal Velocity 8.7 cm/s Mitral E to LV E' Septal Ratio 8.8 PV Peak Velocity 124.0 cm/s PV Peak Gradient 6.2 mmHg FINDINGS LEFT VENTRICLE Normal left ventricular size and wall thickness. The left ventricular systolic function is normal wi th an estimated ejection fraction in the range of 60-65%. No definite wall motion abnormalities. RIGHT VENTRICLE Normal right ventricular size and systolic function. LEFT ATRIUM The left atrial size is normal. RIGHT ATRIUM The right atrial size is normal. ATRIAL SEPTUM Normal atrial septal thickness without atrial level shunting by limited color doppler interrogation. AORTA The aortic root and proximal ascending aorta are normal in size on limited imaging. MITRAL VALVE Structurally normal mitral valve. No mitral valve stenosis or regurgitation. AORTIC VALVE The aortic valve is not well visualized. TRICUSPID VALVE Structurally normal tricuspid valve. No tricuspid valve stenosis or regurgitation. PULMONARY VALVE The pulmonary valve is not well visualized. VESSELS The inferior vena cava is normal in size. PERICARDIUM No pericardial effusion. Randell Vazquez MD (Electronically Signed) Final Date:03 Mar 2018 14:03
[2018-03-04] MEDS ORDERED: AZITHROMYCIN 250 MG TAB PO SCH (09:00)
== END 2018-03-03 15:35 | disposition home or self-care (01) ==
LOC: PHEDDLT 01:15 → PH3B 01:25 → HCIS 16:33 → HCPC 18:11
PROVIDERS: ADMIT Hospitalist; ATTEND Hospitalist
DX: R07.89 Other chest pain (principal); I25.10 Atherosclerotic heart disease of native coronary artery without angina pectoris; J40 Bronchitis, not specified as acute or chronic; E78.5 Hyperlipidemia, unspecified; R06.02 Shortness of breath; E89.0 Postprocedural hypothyroidism; R94.39 Abnormal result of other cardiovascular function study; Z23 Encounter for immunization; E11.9 Type 2 diabetes mellitus without complications; G47.30 Sleep apnea, unspecified; R56.9 Unspecified convulsions; M19.90 Unspecified osteoarthritis, unspecified site; J06.9 Acute upper respiratory infection, unspecified; Z68.43 Body mass index [BMI] 50.0-59.9, adult; E66.9 Obesity, unspecified
CPT/HCPCS: 71046; 78452; 80048; 80053; 82550; 82552; 83880; 84484; 85025; 85610; 85730; 87804; 90732; 93005; 93017; 93306; 93458; 96374; 99152; 99153; 99285; A9502; C1769; C1893; G0009; G0378; J1200; J1644; J1885; J2250; J2785; J2930; J3010; J7030; 90471; Q9967